=== PATIENT | male | born 1995 | race Caucasian/White ===

== ENCOUNTER 2018-06-15 02:00 | Emergency (ER) | payer BC ==
--- NOTE | 2018-06-15 02:08 | EDPHY ---
H & P Stated Complaint: Laceration Source: Patient - Personal History Current Tetanus/Diphtheria Vaccine: Yes Current Tetanus Diphtheria and Acellular Pertussis (TDAP): Yes Tetanus Vaccine Date: 2015 - Medical/Surgical History Hx Asthma: No Hx Chronic Respiratory Disease: No Hx Diabetes: No Hx Cardiac Disease: No Hx Renal Disease: No Hx Cirrhosis: No Hx Alcoholism: No Hx HIV/AIDS: No Hx Splenectomy or Spleen Trauma: No - Social History Smoking Status: Current some day smoker Time Seen by Provider: 06/15/18 02:08 HPI/ROS: HPI CHIEF COMPLAINT: Right hand laceration. HISTORY OF PRESENT ILLNESS: This is a very pleasant 22-year-old male otherwise healthy, tetanus shot up-to-date, presents emergency room with a laceration to the webspace between his right thumb and right index finger it is 3 cm in length. Patient states he was playing a game with a friend with a knife they were playing the game where you put a knife in between her fingers his fast you can. He sustained a laceration to the webspace between the right thumb and right index finger. No other areas of injury. He did have alcohol tonight 5 alcoholic drinks. He arrives emergency room hemodynamically stable no acute distress. No significant bleeding. No obvious tendon injury. He has full range of motion of all his digits and full range of motion of his right hand neurovascularly intact. Past Medical History: Denies medical history Past Surgical History: Denies surgical history Social History: Alcohol this evening, 5 drinks. Family History: Noncontributory ROS REVIEW OF SYSTEMS: 10 Systems were reviewed and negative with the exception of the elements mentioned in the history of present illness. Exam Constitutional triage nursing summary reviewed, vital signs reviewed, awake/ alert. Eyes normal conjunctivae and sclera, EOMI, PERRLA. HENT normal inspection, atraumatic, moist mucus membranes, no epistaxis, neck supple/ no meningismus, no raccoon eyes. Respiratory clear to auscultation bilaterally, normal breath sounds, no respiratory distress, no wheezing. Cardiovascular rate normal, regular rhythm, no murmur, no edema, distal pulses normal. Gastrointestinal soft, non-tender, no rebound, no guarding, normal bowel sounds, no distension, no pulsatile mass. Genitourinary no CVA tenderness. Musculoskeletal no midline vertebral tenderness, full range of motion, no calf swelling, no tenderness of extremities, no meningismus, good pulses, neurovascularly intact. Skin right hand: Neurovascular intact good distal pulse, good cap refill, there is a 3 cm laceration to the webspace between the right thumb and right index finger. No tendon vomit. No arterial involvement. Does not appear to go very deep. He has full range of motion of his thumb good opposition of the thumb to the pinky. Good cap refill, good distal pulse. No compartment syndrome. Neurologic awake, alert and oriented x 3, AAOx3, moves all 4 extremities equally, motor intact, sensory intact, CN II-XII intact, normal cerebellar, normal vision, normal speech. Psychiatric normal mood/affect. Heme/Lymph/Immune no lymphadenopathy. Differential Diagnosis: Includes but is not limited to in a particular order laceration to right hand, stab wound right hand, soft tissue injury. Medical Decision Making: X-ray the right hand rule out foreign body or deep space injury. Will copiously cleaned irrigate his wound. And that his hand laceration will need to be repaired. Re-evaluation: X-ray the right hand reviewed. No foreign body or bony abnormality. Soft tissue swelling noted. Patient is been appropriately repaired by Kamron CASPER, understands have sutures out in 12-14 days. Keep wound clean, dry and intact. Return emergency room if worsening pain, swelling, signs of infection. Patient's right hand neurovascular intact with good distal pulse, good cap refill, no signs of infection. Watch closely for this he understands. Patient's tetanus shot up-to-date. Patient is neurovascularly intact no compartment syndrome good sensation, good cap refill at time of discharge. Return precautions discussed including compartment syndrome (R[place] Alston) Constitutional: Initial Vital Signs Temperature (C) 36.6 C 06/15/18 02:04 Heart Rate 87 06/15/18 02:04 Respiratory Rate 16 06/15/18 02:04 Blood Pressure 126/78 H 06/15/18 02:04 O2 Sat (%) 94 06/15/18 02:04 O2 Delivery Mode Room Air Allergies/Adverse Reactions: No Known Allergies Allergy (Unverified 06/15/18 02:04) Home Medications: Medication Instructions Recorded Finasteride 06/15/18 Medical Decision Making Procedures: Procedure: Laceration repair. Verbal consent was obtained from the patient. The right hand laceration was anesthetized in the usual fashion. The wound was copiously irrigated, draped and explored to its base with a gloved finger. There were no deep structures involved. No tendon injury was identified. The wound was 3 cm in length. The wound was repaired with 5.0 Prolene. The wound repair was simple with 5 total sutures. The procedure was performed by myself. The patient tolerated well. The patient remained neurovascularly intact after suture placement, full range of motion of hand in all digits. (Jewels Lundy) Departure - Departure Disposition: Home, Routine, Self-Care Clinical Impression: Hand laceration Qualifiers: Encounter type: initial encounter Foreign body presence: without foreign body Laterality: right Qualified Code(s): S61.411A - Laceration without foreign body of right hand, initial encounter Condition: Good Instructions: Care For Your Stitches (ED), Laceration (ED) Additional Instructions: 1. Keep your wound clean, dry and intact. 2. Sutures need to be removed in 12-14 days. 3. Return to the emergency room if worsening symptoms questions or concerns watch for infection. Watch for redness, swelling, drainage, pus. Referrals: NONE *PRIMARY CARE P,. [Primary Care Provider] - As per Instructions
[2018-06-15 02:49] VITALS: BP 129/76
== END 2018-06-15 03:29 | disposition home or self-care (01) ==
PROC: 0HQFXZZ Repair Right Hand Skin, External Approach (ICD-10-PCS; principal; 2018-06-15)
DX: S61.411A Laceration without foreign body of right hand, initial encounter (principal); W26.0XXA Contact with knife, initial encounter; Y93.89 Activity, other specified